=== PATIENT | male | born 1960 | race Caucasian/White ===

== ENCOUNTER 2018-08-26 20:45 | Emergency (ER) | payer BC ==
[2018-08-26] MEDS ORDERED: Ondansetron 4 MG Tab.DIS PO ONE (21:28)
[2018-08-26] MEDS ORDERED: Ketorolac 60 MG/2 ML SDV IM ONE (21:38)
--- NOTE | 2018-08-26 21:44 | EDM.PDOC ---
ED HPI GENERAL MEDICAL PROBLEM - General Chief Complaint: Flank Pain Stated Complaint: KIDNEY STONES Time Seen by Provider: 08/26/18 21:25 Source of Information: Reports: Patient History Limitations: Reports: No Limitations - History of Present Illness INITIAL COMMENTS - FREE TEXT/NARRATIVE: 58 yo M comes in today for left flank pain that started earlier this morning around 3:45am. He states it feels like a kidney stone, as he has "had a couple" in the past, the last being about 15 years ago. Pain is described to be a dull and constant "uncomfortable" 7/10 pain, that originally started in the left side of the abdomen and has now migrated to the left flank. He also has some "testicular pain" but states it's not his prime concern. He tried to take 600mg Motrin at home but had no relief. He also c/o Nausea and Vomiting x2, last episode around 6pm. He denies any F/C, current abdominal pain, diarrhea, dysuria , hematuria, testicular swelling/changes, no new sexual partners or concerns for STD. No other concerns at this time. 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 (see below) Other Treatments STAGE PRODUCER: motrin 600 mg Left Flank Pain Score (Numeric/FACES): 7 - Related Data Allergies Allergy/AdvReac Type Severity Reaction Status Date / Time No Known Allergies Allergy Verified 08/26/18 20:57 Home Meds: Home Meds Ondansetron [Zofran ODT] 4 mg PO Q6H PRN #20 tab.dis 08/26/18 [Rx] Tamsulosin HCl [Flomax] 0.4 mg PO DAILY #14 cap.er.24h 08/26/18 [Rx] atorvaSTATin [Lipitor] 10 mg PO DAILY 08/26/18 [History] metFORMIN [Glucophage XR] 500 mg PO BID 08/26/18 [History] Past Medical History Cardiovascular History: Reports: High Cholesterol Genitourinary History: Reports: Renal Calculus Endocrine/Metabolic History: Reports: Diabetes, Type II Social & Family History - Tobacco Use Smoking Status *Q: Current Every Day Smoker Years of Tobacco use: 40 Packs/Tins Daily: 0.7 - Caffeine Use Caffeine Use: Reports: Coffee, Soda - Recreational Drug Use Recreational Drug Use: No ED ROS GENERAL - Review of Systems Review Of Systems: ROS reveals no pertinent complaints other than HPI. ED EXAM, RENAL/ - Physical Exam Exam: See Below Exam Limited By: No Limitations General Appearance: Alert, WD/WN, Moderate Distress Eye Exam: Bilateral Eye: EOMI, Normal Inspection, PERRL Ears: Normal External Exam, Hearing Grossly Normal Respiratory/Chest: No Respiratory Distress, Lungs Clear, Normal Breath Sounds, No Accessory Muscle Use, Chest Non-Tender Cardiovascular: Normal Peripheral Pulses, Regular Rate, Rhythm, No Edema, No Gallop, No JVD, No Murmur, No Rub GI/Abdominal: Normal Bowel Sounds, Soft, Non-Tender, No Organomegaly, No Distention, No Abnormal Bruit, No Mass (Male) Exam: Deferred Back Exam: Full Range of Motion, CVA Tenderness (L) Neurological: Alert, Oriented, CN II-XII Intact, Normal Cognition, Normal Gait, Normal Reflexes, No Motor/Sensory Deficits Psychiatric: Normal Affect, Normal Mood Skin Exam: Warm, Dry, Intact, Normal Color, No Rash Course - Vital Signs Last Recorded V/S: Last Vital Signs Temp 97.9 F 08/26/18 20:55 Pulse 73 08/26/18 20:55 Resp 20 08/26/18 20:55 BP 139/98 H 08/26/18 20:55 Pulse Ox 100 08/26/18 20:55 - Orders/Labs/Meds Orders: Active Orders 24 hr Category Date Time Status Abdomen 1V Flat [CR] Stat Exams 08/26/18 21:37 Taken Abdomen wo Cont [CT] Stat Exams 08/26/18 22:35 Taken Labs: Laboratory Tests 08/26/18 Range/Units 21:07 Urine Color Yellow (Yellow) Urine Appearance Clear (Clear) Urine pH 5.5 (5.0-8.0) Ur Specific Tebbetts > or = 1.030 (1.005-1.030) Urine Protein 1+ H (Negative) Urine Glucose (UA) Trace H (Negative) Urine Ketones Negative (Negative) Urine Occult Blood 3+ H (Negative) Urine Nitrite Negative (Negative) Urine Bilirubin Negative (Negative) Urine Urobilinogen 0.2 (0.2-1.0) Ur Leukocyte Esterase Negative (Negative) Urine RBC 5-10 H (0-5) /hpf Urine WBC 0-5 (0-5) /hpf Ur Epithelial Cells Not Reportable Ur Squamous Epith Cells 0-5 (0-5) /hpf Urine Bacteria Few (FEW) /hpf Urine Mucus Moderate H (FEW) /hpf Meds: Medications Discontinued Medications Generic Name Dose Route Start Last Admin Trade Name Eric PRN Reason Stop Dose Admin Ketorolac Tromethamine 60 mg 08/26/18 21:38 08/26/18 21:45 Toradol IM 08/26/18 21:39 60 mg ONETIME ONE Administration Ondansetron HCl 4 mg 08/26/18 21:28 08/26/18 21:33 Zofran Odt PO 08/26/18 21:29 4 mg ONETIME ONE Administration - Re-Assessments/Exams Free Text/Narrative Re-Assessment/Exam: 08/26/18 21:28 UA, KUB ordered Gave Zofran 4mg PO and Toradol 60mg IM 08/26/18 21:47 UA shows 1+ protein, 3+ occult blood, RBC 5-10, moderate mucous No signs of UTI, but blood in the urine may indicate stone KUB pending 08/26/18 22:36 KUB reviewed by myself and Dr. Duke. Nothing acute seen. Will order CT abdomen. 08/26/18 23:31 CT abdomen read by [facility] shows: 5mm stone in the left ureter at the level of the illiac vessels. Moderate hydronephrosis. Nonobstructing stones in the left kidney measures up to 8mm in diameter. Will send home with antinausea, pain medication, Flomax, strainer to catch the stone and f/u appointment with urologist Dr. Sanders in [place]. Departure - Departure Time of Disposition: 23:33 Disposition: Home, Self-Care 01 Condition: Fair Clinical Impression: Renal stone - Discharge Information *PRESCRIPTION DRUG MONITORING PROGRAM REVIEWED*: Not Applicable *COPY OF PRESCRIPTION DRUG MONITORING REPORT IN PATIENT JUHI: Not Applicable Prescriptions: Ondansetron [Zofran ODT] 4 mg PO Q6H PRN #20 tab.dis PRN Reason: Nausea Tamsulosin HCl [Flomax] 0.4 mg PO DAILY #14 cap.er.24h Instructions: Kidney Stones, [id number], Dietary Guidelines to Help Prevent Kidney Stones Referrals: PCP,Not In Area [Primary Care Provider] - Forms: ED Department Discharge Additional Instructions: You were seen in the ED today for kidney stone. CT showed you have a 5mm stone. You will also be given medication for pain and nausea. Be sure to remain hydrated. You will be given Flomax and a strainer to help catch the stone if you pass it. If you haven't passed the stone by Tuesday, make a follow up with urologist Dr. Sanders in [place]- you can make an appointment by calling [phone]. Please return to ED if new or worsening symptoms. - My Orders Last 24 Hours: My Active Orders 08/26/18 21:37 Abdomen 1V Flat [CR] Stat 08/26/18 22:35 Abdomen wo Cont [CT] Stat - Assessment/Plan Last 24 Hours: My Active Orders 08/26/18 21:37 Abdomen 1V Flat [CR] Stat 08/26/18 22:35 Abdomen wo Cont [CT] Stat
--- NOTE | 2018-08-28 08:23 | CT ---
CT abdomen and pelvis Technique: Multiple axial sections were obtained from above the dome of the diaphragm inferiorly through the pubic symphysis. Intravenous and oral contrast not utilized. Study has been performed as a ureteral stone protocol. Comparison: No prior abdominal imaging. Findings: Several nonobstructing calculi are noted within the lower left kidney. Largest stone measures about 1.2 cm. Collecting system of the left kidney is dilated as well as dilated left ureter. Dilatation is due to an obstructing stone within the mid to distal left ureter measuring approximately 6 mm. This stone occurs approximately 3.5-4 cm from the UVJ. No additional ureteral calculi are seen. Other findings: Visualized lung bases show nothing acute. Noncontrast appearance of the liver and spleen appear within normal limits. Gallbladder contains no calcified gallstones. Adrenal glands are slightly nodular in appearance which is believed to be incidental. Pancreas is within normal limits. Aorta shows atherosclerotic calcification which continues into the iliac vessels. No aneurysm is seen. No retroperitoneal adenopathy or mesenteric abnormalities are seen. Small fat-containing umbilical hernia is noted. No pelvic mass or adenopathy is seen. No free fluid or inflammatory change is noted. Bone window settings were reviewed which show scattered degenerative change within the spine. Minimal anterior wedging is noted of T12 which is believed to be old. Incidental lateral spondylolytic defects at L5-S1 are noted. Impression: 1. Nonobstructing calculi within the lower left kidney. 2. Left-sided hydronephrosis caused by mid to distal obstructing stone within the left ureter measuring 6 mm. This is located 3.5-4 cm from the UVJ. 3. Other incidental findings as noted above. Diagnostic code #3 I agree with preliminary report from [facility], finalized on 08/27/18, 12:18 AM Central Time [facility]
--- NOTE | 2018-08-28 09:53 | CR ---
Abdomen: Supine view of the abdomen was obtained. Comparison: No prior abdominal imaging. Findings: Calcification is seen within the pelvis. Most of these calcifications represent phleboliths. One calcification within the left pelvis is compatible with distal left ureteral stone. Bowel gas pattern is normal. Slight degenerative change is noted within the spine. Impression: 1. Calcifications as noted above. Diagnostic code #3
== END 2018-08-27 00:08 | disposition home or self-care (01) ==
LOC: JD.ED 20:45
DX: N13.2 Hydronephrosis with renal and ureteral calculous obstruction (principal); F17.210 Nicotine dependence, cigarettes, uncomplicated; E11.9 Type 2 diabetes mellitus without complications; E78.00 Pure hypercholesterolemia, unspecified; Z79.899 Other long term (current) drug therapy; Z79.84 Long term (current) use of oral hypoglycemic drugs
CPT/HCPCS: 74018; 74177; 81001; 96372; 99284; A9270; J1885; 74150; 74150-26; 99283